=== PATIENT | female | born 1990 | race Caucasian/White ===

== ENCOUNTER 2020-02-13 09:18 | Emergency (ER) | payer OTHER, SELFPAY ==
[2020-02-13] VITALS (7 sets, daily range): BP systolic 117–133; BP diastolic 73–89; PULSE 92–103; RESP 16–20; TEMP 35.9; O2SAT 98–100
[2020-02-13] MEDS: diazePAM INJ (*CRX) 10 MG/2 ML SYRINGE 5 MG IV PUSH (10:12)
[2020-02-13] MEDS: diphenhydrAMINE HCl INJ 50 MG/ML VIAL 25 MG IV PUSH (10:12)
--- NOTE | 2020-02-13 10:23 | ED.GENADULT ---
HPI - General Adult General Chief complaint: Allergic Reaction Stated complaint: sob, oral swelling, poss drug allergy Time Seen by Provider: 02/13/20 09:30 History of Present Illness HPI narrative: Patient is a 29-year-old female who presents the ER with pain and spasm of the tongue and jaw. Patient is 8 weeks and has morning sickness. She did not do well with likely just. She was started on Compazine. She took 2 doses yesterday. This morning she took a dose around 7:30 AM. 1 hour later she started having stiffness and spasm of her tongue and her jaw. She is able to breathe and speak. The pain and spasm comes in waves. No swelling to the lips. Has not had symptoms like this previously. Has not found any alleviating factors. Related Data Home Medications Medication Instructions Recorded Confirmed insulin lispro [Humalog U-100 See Rx Instructions .ROUTE .COMPLEX 02/13/20 Insulin] [id number] fum-folic ac-om3 pkg PO DAILY 02/13/20 [Daily ] prochlorperazine maleate See Rx Instructions .ROUTE 02/13/20 .COMPLEX PRN Allergies Allergy/AdvReac Type Severity Reaction Status Date / Time acetaminophen Allergy Swelling Verified 02/13/20 09:27 ibuprofen Allergy Swelling Verified 02/13/20 09:27 Review of Systems Review of Systems: All systems reviewed & are unremarkable except as noted in HPI and below Constitutional: Constitutional: Denies chills, Denies fever(s) and Denies weakness ENT: Comments: Tongue and jaw spasm Cardiovascular: Cardiovascular: Denies chest pain and Denies radiating jaw, neck or arm pain Respiratory: Respiratory: Denies cough, Denies dyspnea and Denies wheezing Gastrointestinal: Gastrointestinal: Denies abdominal pain, Reports nausea and Denies vomiting Genitourinary: Genitourinary: Denies abnormal vaginal bleeding, Denies nocturia and Denies dysuria [facility] Past Medical History Medical History (Updated 02/13/20 @ 12:48 by Diego Reynolds MD) Type 1 diabetes Surgical History Surgical History (Updated 02/13/20 @ 10:25 by Diego Reynolds MD) No history of previous surgery Social History Social History (Updated 02/13/20 @ 10:25 by Diego Reynolds MD) Smoking status: Never smoker Gender identity (if verbalized by the patient): Female Exam Narrative: Exam Narrative: GENERAL: Anxious-appearing, well-nourished, and in moderate distress. HEAD: Normocephalic, atraumatic. ENT: Mucous membranes moist. Tongue placed into the left side of the mouth without swelling. Stiff jaw with tenderness to Masters bilaterally. No posterior oropharyngeal swelling. No sublingual swelling. CHEST: Clear to auscultation. No respiratory distress. HEART: Regular rate and rhythm. Normal peripheral pulses. ABDOMEN: Soft, nontender, nondistended. EXTREMITIES: Normal range of motion. No edema. SKIN: Warm, dry, no rash. NEURO: Alert and oriented x3. Course Reevaluation(s) Reevaluation #1: Patient much more comfortable with Benadryl and Valium. She is laying in the bed now and can move her jaw and speak normally with normal movements of the tongue. Date: 02/13/20 Time: 10:26 Reevaluation #2: Patient has remained symptom-free. Updated Boom Drummond NP at [facility] with [facility] department. Aide tierney. D/c compazine. Date: 02/13/20 Time: 12:47 Vital Signs Vital signs: Vital Signs Temperature 96.7 F L 02/13/20 09:21 Pulse Rate 103 H 02/13/20 09:21 Respiratory Rate 16 02/13/20 09:21 Blood Pressure 118/78 02/13/20 09:21 Pulse Oximetry 100 02/13/20 09:21 Temperature 96.7 F L 02/13/20 09:21 Pulse Rate 97 02/13/20 12:07 Respiratory Rate 16 02/13/20 12:07 Blood Pressure 126/88 02/13/20 12:07 Pulse Oximetry 100 02/13/20 12:07 Medical Decision Making Vital Signs Vital Signs: Vital Signs Temperature 96.7 F L 02/13/20 09:21 Pulse Rate 103 H 02/13/20 09:21 Respiratory Rate 16 02/13/20 09:21 Blood Pressure 118/78 02/13/20 09:2
[2020-02-13] MEDS: SODIUM CHLORIDE 0.9% IV 1,000 ML 999 ML IV CONT (10:25)
--- NOTE | 2020-02-13 10:30 | PC.NURSE ---
called Ophelia hale, addjudson on BMP and CBCD 1030
[2020-02-13 10:34] LABS: Basophils Percent Auto 0.2 % (0.2-1.2); Eosinophils Absolute Auto 0.1 K/mm3 (0-0.3); Eosinophils Percent Auto 0.9 % (0-4.4); Immature Granulocyte Absolute 0.03 K/mm3 (0.00-0.031); Immature Granulocyte Percent A 0.3 % (0-0.5); Lymphocytes Absolute Auto 2.73 K/mm3 (0.9-3.2); Lymphocytes Percent Auto 31.4 % (18.3-44.2); Mean Corpuscular HGB Conc 35.7 g/dl (32-36); Mean Corpuscular Hemoglobin 31.6 pg (26-34); Mean Corpuscular Volume 88.4 fl (80-100); Mean Platelet Volume 10.2 fl (7.4-10.4); Monocytes Absolute Auto 0.5 K/mm3 (0.1-0.6); Monocytes Percent Auto 5.4 % (2.6-8.5); Neutrophils Absolute Auto 5.4 K/mm3 (1.3-6.7); Neutrophils Percent Auto 61.8 % (45.5-73.1); Platelet Count Result 241 k/mm3 (150-375); Red Blood Count 4.75 M/mm3 (4.2-5.4); Red Cell Distribution Width 12.1 % (11.5-14.5); White Blood Count 8.7 K/mm3 (4.5-10.0)
[2020-02-13 10:42] LABS: Anion Gap 11 mmol/L (8-16); Blood Urea Nitrogen 16 mg/dL (7-17); Carbon Dioxide 22 mmol/L (22-30); Chloride 102 mmol/L (98-107); Estimated CRCL calculation 113 ml/min; Estimated Glomerular Filt Rate > 60; Glucose 181 mg/dL (65-105); Potassium 3.7 mmol/L (3.4-5.0); Sodium 135 mmol/L (137-145)
== END 2020-02-13 13:05 | disposition home or self-care (01) ==
PROVIDERS: Emergency Provider Emergency Medicine; PCP Physician Assistant
DX: G24.02 Drug induced acute dystonia (principal); T43.3X5A Adverse effect of phenothiazine antipsychotics and neuroleptics, initial encounter; E10.9 Type 1 diabetes mellitus without complications; Z79.4 Long term (current) use of insulin
CPT/HCPCS: 36415; 80048; 85025; 96361; 96374; 96375; 99284; J1200; J3360; J7030

== ENCOUNTER 2022-06-14 07:56 | Outpatient (CLI) | payer BC, SELFPAY ==
[2022-06-14 08:26] LABS: Anion Gap 5 mmol/L (8-16); Blood Urea Nitrogen 21 mg/dL (7-17); Calcium 8.6 mg/dL (8.4-10.2); Carbon Dioxide 27 mmol/L (22-30); Chloride 103 mmol/L (98-107); Estimated Glomerular Filt Rate > 60; Glucose 185 mg/dL (65-110); Potassium 4.1 mmol/L (3.4-5.0); Sodium 135 mmol/L (137-145)
[2022-06-14 09:15] LABS: Hematocrit 41.6 % (37.0-47.0); Hemoglobin 14.2 g/dL (12.0-15.0)
== END 2022-06-14 07:57 | disposition home or self-care (01) ==
LOC: ANHSURGERY 08:01
PROVIDERS: Anesthesiology; PCP Physician Assistant; Visit Provider Obstetrics & Gynecology
DX: E11.9 Type 2 diabetes mellitus without complications (principal); N93.9 Abnormal uterine and vaginal bleeding, unspecified
CPT/HCPCS: 36415; 80048; 85014; 85018

== ENCOUNTER 2022-06-16 01:21 | Day surgery (SDC) | payer BC, SELFPAY ==
[2022-06-08 14:25] VITALS: BMI 26.2
--- NOTE | 2022-06-08 14:54 | PC.NURSE ---
Report to the Outpatient Waiting Room, entrance under the green pavilion located off [facility], at 0600 on 06/16/22. Planned Procedure Time: 0730. Time changes happen often and if your time is changed the preop area will call you the afternoon before. - You and your visitor will be asked to self-screen and do not enter if you have any COVID symptoms. - Only one visitor is requested with a max of two and NO children visitors are allowed at this time. - The patient visitor may be requested to leave or wait in car when not with patient due to distancing restrictions. - A mask is optional within the hospital at this time. Patients may have clear liquids (water, carbonated beverages, clear teas, apple juice) until 3 hours prior to surgery with a maximum of 20 ounces. - No food from midnight until time of surgery Take the following medications with a SIP of water the morning of surgery: Lexapro DO NOT STOP ANY OF YOUR OTHER PRESCRIPTION MEDICATIONS PRIOR TO SURGERY ?EXCEPT THE FOLLOWING Medications to discontinue per physician n/a Date to take last dose n/a Please no make-up, nail burundian, hairspray, perfume, deodorant, or body powder the day of surgery. No jewelry (including any body piercings) or valuables the day of surgery, leave them at home. Please take a shower or bath the night before, or the morning of, surgery with an antibacterial soap. Wear comfortable, loose fitting clothing. - Jewelry must be removed prior to entering the operating room. Rings and piercings that are not removed may be cut off. - The hospital will not accept responsibility for valuables. - Please leave all valuables, including medications, at home the day of surgery. If you are going home after surgery, a licensed dray driver must drive you home. - NO public transportation without another adult if you receive anesthesia. - We recommend that an adult stay with you for 24 hours following discharge. - We also recommend that you do not drive, make important decision, drink alcoholic beverages, or take any drugs that were not prescribed by your health care provider for at least 24 hours after your discharge time. Follow any additional instructions given to you from your surgeon. If you or anyone in your household have experienced Covid symptoms in the past week, please notify your surgeon or the nurse liaison at the phone number below for possible testing. Telephone instructions given to patient and asked if any additional questions and then verbalized understanding. Patient advised to call surgeon office or pre surgery nurse liaison [phone] if any additional questions.
--- NOTE | 2022-06-14 11:51 | PM.IMHP ---
H&P: HPI History of Present Illness Date/Time: 06/14/22 11:51 Chief Complaint: Any vaginal bleeding Narrative: Is a 31-year-old female 2 para 2 status post tubal ligation who is admitted for hysteroscopy/dilatation curettage/ablation. Her periods are extremely heavy really does not pain and she has had no success with hormones she is insulin-dependent and has polycystic ovaries a or contributing to this problem. Risks and benefits reviewed including but not exclusive , aspiration, bleeding, transfusion, perforation injury to bowel, bladder, ureters, or other internal organs with need for open laparotomy. She received the ACOG handout entitled hysteroscopy as well as dilatation curettage respectively. She also received the Darling handout. She had all questions answered. She asked to proceed PMFSH Past Medical History Medical History Type 1 diabetes Surgical History Surgical History No history of previous surgery Social History Social History Smoking status: Never smoker Second hand tobacco smoke exposure: No Alcohol intake: current Drinks per week: 3 Alcohol use details: wine Substance use: never Living arrangements: with family Gender identity (if verbalized by the patient): Female Spiritual care concerns: No Meds Home Medications and Allergies Home Medications Medication Instructions Recorded Confirmed Type insulin lispro 100 unit/mL See Rx Instructions .Route .COMPLEX 02/13/20 06/08/22 History subcutaneous solution (Humalog U-100 Insulin) escitalopram oxalate 5 mg tablet 5 mg PO DAILY 06/08/22 06/08/22 History (Lexapro) Allergies Allergy/AdvReac Type Severity Reaction Status Date / Time acetaminophen Allergy facial Verified 06/08/22 14:22 swelling ibuprofen Allergy facial Verified 06/08/22 14:22 swelling Exam Const: General: cooperative, healthy appearing, comfortable and well groomed Nutritional Appearance: average body habitus, well nourished and cachectic Resp: Effort & Inspection: normal respiratory effort Cardio: Rate: regular rate Rhythm: regular rhythm Heart sounds: S1 normal heart sound present and S2 normal heart sound present GI: Inspection: normal to inspection : Speculum Exam - Vagina: normal appearance of the vagina Speculum Exam - Cervix: normal appearance of the cervix and Cervical os closed Bimanual exam- vagina & uterus: non-tender Bimanual Exam- Adnexa, other: normal adnexae Assessment and Plan Assessment and plan (1) Vaginal bleeding: Code(s): N93.9 - Abnormal uterine and vaginal bleeding, unspecified Status: Acute Plan Hysteroscopy/dilatation curettage/endometrial ablation
[2022-06-16] MEDS: LACTATED RINGERS 1,000 ML 30 ML IV CONT (06:30)
[2022-06-16 06:45] VITALS: BP 119/74; PULSE 84; RESP 16; TEMP 36.5; O2SAT 99
[2022-06-16 06:56] LABS: Glucose Point of Care 203 mg/dl (65-105)
--- NOTE | 2022-06-16 07:07 | WPDHPUPDATE1 ---
History and Physical Update Update Date/Time: 06/16/22 07:07 History and Physical has been reviewed, including an updated exam of the patient. There are NO changes in the patient's condition. Risks, benefits, and alternatives have been discussed and questions answered. Patient agrees to proceed with procedure.
--- NOTE | 2022-06-16 07:08 | WPDANESEPPF ---
Anes - Initial Pre Proc Eval Procedure: Operation Date: 06/16/22 07:30 Proposed Procedures p Hysteroscopy Dilation and Curettage with Darling Endometrial Ablation - Royer Trejo MD Date/Time: 06/16/22 07:08 Surgeon: Royer Trejo MD Pre Op Diagnosis: heavy vaginal bleeding Patient Data Age: 31 Gender: F Height: 1.7 m Weight: 75.75 kg Allergies Allergy/AdvReac Type Severity Reaction Status Date / Time acetaminophen Allergy facial Verified 06/08/22 14:22 swelling ibuprofen Allergy facial Verified 06/08/22 14:22 swelling Home Medications Medication Instructions Recorded Confirmed Type insulin lispro 100 unit/mL See Rx Instructions .Route .COMPLEX 02/13/20 06/08/22 History subcutaneous solution (Humalog U-100 Insulin) escitalopram oxalate 5 mg tablet 5 mg PO DAILY 06/08/22 06/08/22 History (Lexapro) Laboratory Tests 06/16/22 06:49 POC Capillary Glucose 203 mg/dl H mg/dl (65-105) Patient hx anesthesia problems: none Family hx anesthesia problems: none Results Review: All pre-operative results and documents have been reviewed as part of the pre-operative evaluation. COUNTS INCLUDE 234 BEDS AT THE [facility] Past Medical History Medical History Type 1 diabetes Surgical History Surgical History No history of previous surgery Social History Social History Smoking status: Never smoker Second hand tobacco smoke exposure: No Alcohol intake: current Drinks per week: 3 Alcohol use details: wine Substance use: never Living arrangements: with family Gender identity (if verbalized by the patient): Female Spiritual care concerns: No Anes - Eval Final PreProcedure Day of Procedure 06/16/22 07:08 Patient weight: normal Heart: regular rate and rhythm Lungs: clear to auscultation Airway: Mallampati scale class II Neurological: alert and oriented Last oral intake: >/= 8 hours ASA classification: II Emergent: no Anesthetic plan: proceed Anesthesia type and monitoring: general GIVS and standard monitoring Results Review: All pre-operative results and documents have been reviewed as part of the pre-operative evaluation. Informed Consent: The patient's anesthetic plan and its attendant risks and benefits were discussed with the patient/family/POA. Questions were solicited and answers provided to the satisfaction of the patient/family/POA.
[2022-06-16] MEDS: LIDOCAINE HCL 1% LOCAL INJ 10 ML VIAL INFILTRATE (07:46)
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
[2022-06-16 08:00] VITALS: BP 97/50; PULSE 72; RESP 12; O2SAT 100
[2022-06-16 08:01] LABS: Glucose Point of Care 220 mg/dl (65-105)
[2022-06-16] MEDS: fentaNYL CITRATE INJ (*CRX) 100 MCG/2 ML VIAL 25 MCG IV PUSH ×2 (08:23→08:26)
[2022-06-16 08:35] VITALS: BP 102/73; PULSE 70; RESP 12
[2022-06-16 08:55] VITALS: BP 101/59; PULSE 59; RESP 12
== END 2022-06-16 09:03 | disposition home health service (06) ==
PROVIDERS: PCP Physician Assistant; Visit Provider Obstetrics & Gynecology
PROC: 0U5B8ZZ Destruction of Endometrium, Via Natural or Artificial Opening Endoscopic (ICD-10-PCS; CPT 58563; principal; 2022-06-16 07:30)
DX: N93.8 Other specified abnormal uterine and vaginal bleeding (principal); E10.9 Type 1 diabetes mellitus without complications
CPT/HCPCS: 58563; 82948; 88305; J2250; J2704; J3010; J7030; J7120

== ENCOUNTER 2024-09-10 14:59 | Outpatient (CLI) | payer BC, SELFPAY ==
--- NOTE | ~2024-09-10 | XR_ITS ---
XR hand RT min 3V Ordering provider: Jose Ramon Mckenna, [place] History: . fracture of 5th metatarsal . Comparison: None. FINDINGS: BONES: Boxers fracture is seen in the distal metaphysis of the right fifth metacarpal bone with angul ation of about 50 degrees. JOINT SPACES: Normal. SOFT TISSUES: Normal. IMPRESSION: Boxer's fracture of the fifth metacarpal bone. Reviewed, dictated and finalized at location A.
== END 2024-09-10 15:00 | disposition home or self-care (01) ==
PROVIDERS: PCP Chiropractor; Visit Provider Chiropractor
DX: S62.396A Other fracture of fifth metacarpal bone, right hand, initial encounter for closed fracture (principal); X58.XXXA Exposure to other specified factors, initial encounter
CPT/HCPCS: 73130

== ENCOUNTER 2024-10-15 08:58 | Outpatient (CLI) | payer BC, SELFPAY ==
--- NOTE | ~2024-10-15 | XR_ITS ---
Right Hand Technique: PA, oblique, and lateral views were obtained. Clinical History: Fracture Findings: There is acute oblique fracture of the distal fifth metacarpal neck with volar angulation. No other fracture or dislocation. Joint spaces are preserved. Soft tissues are unremarkable. Impression: Acute fracture the distal fifth metacarpal neck, as detailed above. Reviewed, dictated and finalized at location . Impression: Acute fracture the distal fifth metacarpal neck, as detailed above.
== END 2024-10-15 08:59 | disposition home or self-care (01) ==
PROVIDERS: PCP Chiropractor; Visit Provider Chiropractor
DX: S62.396A Other fracture of fifth metacarpal bone, right hand, initial encounter for closed fracture (principal); X58.XXXA Exposure to other specified factors, initial encounter
CPT/HCPCS: 73130